=== PATIENT | male | born 1980 | race Caucasian/White ===

== ENCOUNTER → 2021-11-25 | Outpatient (CLI) | payer BC ==
[2021-11-25 17:27] LABS: ALBUMIN 2.2 g/dL (3.5-5.0)
[2021-11-25 17:28] LABS: CALCIUM 7.9 mg/dL (8.3-10.5)
[2021-11-25 17:30] LABS: TOTAL PROTEIN 4.6 g/dL (6.4-8.3)
[2021-11-25 17:31] LABS: TOTAL BILIRUBIN 16.8 mg/dL (0.2-1.2)
== END ==
LOC: LAB 17:04
DX: K76.9 Liver disease, unspecified (principal)

== ENCOUNTER → 2022-04-07 | Outpatient (CLI) | payer BC ==
[2022-04-07 17:44] LABS: HEMATOCRIT 22.5 % (42.0-52.0)
[2022-04-07 17:53] LABS: HEMOGLOBIN 6.5 g/dL (13.5-18.0)
== END ==
LOC: LAB 17:25
PROVIDERS: Internal Medicine Nephrology
DX: Z01.89 Encounter for other specified special examinations (principal)

== ENCOUNTER → 2022-04-09 | Outpatient (CLI) | payer BC ==
[2022-04-09] VITALS (10 sets, daily range): BP systolic 103–118; BP diastolic 62–75
[~2022-04-09] VITALS: Ht 177.8 cm; Wt 84.1 kg
[2022-04-09 12:15] LABS: HEMOGLOBIN 6.3 g/dL (13.5-18.0)
== END ==
LOC: AMSURD 04-08 07:39 → LAB 11:01
PROVIDERS: Nurse Practitioner
DX: N17.9 Acute kidney failure, unspecified (principal)
CPT/HCPCS: J7050

== ENCOUNTER → 2022-07-08 | Outpatient (CLI) | payer BC ==
[2022-07-08 08:16] LABS: BASO # 0.04 K/mm3 (0.02-0.10); EOS # 0.21 K/mm3 (0.04-0.40); EOS % 5.7 % (0.0-4.0); HEMATOCRIT 30.2 % (42.0-52.0); MEAN CELL VOLUME 93 fl (78-100); MEAN CORPUSCULAR HEMOGLOBIN 28 pg (27-31); MEAN CORPUSCULAR HGB CONC 30 g/dL (33-37); MEAN PLATELET VOLUME 10.9 fl (7.4-10.4); MONO # 0.26 K/mm3 (0.20-0.80); NEU # 1.92 K/mm3 (1.40-6.50); PLATELET COUNT 161 K/mm3 (130-400); RED BLOOD COUNT 3.24 M/mm3 (4.20-5.60); RED CELL DISTRIBUTION WIDTH 18.6 % (11.5-14.5); WHITE BLOOD COUNT 3.7 K/mm3 (4.8-10.8)
[2022-07-08 08:29] LABS: ALBUMIN 3.8 g/dL (3.5-5.0)
[2022-07-08 08:30] LABS: POTASSIUM 5.1 mmol/L (3.5-5.1)
[2022-07-08 08:31] LABS: CALCIUM 9.8 mg/dL (8.3-10.5)
[2022-07-08 08:32] LABS: TOTAL PROTEIN 6.6 g/dL (6.4-8.3)
[2022-07-08 08:34] LABS: TOTAL BILIRUBIN 4.6 mg/dL (0.2-1.2)
[2022-07-08 08:39] LABS: PROTHROMBIN TIME 11.2 SECONDS (9.0-12.0)
== END ==
LOC: LAB 08:01
DX: Z94.4 Liver transplant status (principal)